=== PATIENT | male | born 1995 | race American Indian/Alaskan Native ===

== ENCOUNTER 2018-07-13 12:55 | Inpatient (IN) | payer BC, OTHER ==
[2018-07-13] MEDS ORDERED: DUONEB *Not for PRN Use IH ONE ×2 (13:15→13:18)
[2018-07-13] MEDS ORDERED: SOLU-Medrol IV ONE (13:20)
[2018-07-13] MEDS ORDERED: MAGNESIUM SULFATE 2GM/50ML 2 GM/50 ML BAG IV ONE (13:30)
[2018-07-13 13:58] LABS: Basophils % (Auto) 0.7 % (0.0-1.8); Eosinophils # (Auto) 0.2 K/mm3 (0.0-0.4); Eosinophils % (Auto) 4.1 % (0.0-4.3); Hematocrit 45.8 % (35.5-45.6); Lymphocytes % (Auto) 19.5 % (13.4-35.0); Mean Corpuscular HGB Conc 33 % (32-34); Mean Corpuscular Hemoglobin 29 pg (28-32); Mean Corpuscular Volume 87 fl (84-94); Monocytes # (Auto) 0.5 K/mm3 (0.0-0.8); Platelet Count 202 K/mm3 (140-440); Red Blood Count 5.27 M/mm3 (3.65-5.03); Red Cell Distribution Width 13.4 % (13.2-15.2)
--- NOTE | 2018-07-13 13:59 | XRay Report ---
AP CHEST: HISTORY: Hypertension AP view of the chest demonstrates a normal mediastinal and cardiac contour with clear lungs and normal bony and soft tissue structures. IMPRESSION: Unremarkable AP chest.
[2018-07-13 14:11] LABS: BUN/Creatinine Ratio 10; Blood Urea Nitrogen 10 mg/dL (9-20); Calcium 9.3 mg/dL (8.4-10.2); Hemolysis Index 20
[2018-07-13] MEDS ORDERED: PROVENTIL IH ONE ×3 (14:27→16:54)
[2018-07-13] MEDS ORDERED: ULTRAM PO ONE (15:45)
--- NOTE | 2018-07-13 16:07 | Emergency Department Report ---
ED Asthma HPI - General Chief Complaint: Adult Asthma Stated Complaint: ASTHMA ATK Time Seen by Provider: 07/13/18 13:19 Source: patient Mode of arrival: Ambulatory Limitations: No Limitations - History of Present Illness Initial Comments: 2-year-old male presents in respiratory distress secondary to asthma. He presents with his mother. Apparently he lives alone and has been fighting an asthma attack past 4 days. He is unable to speak in full sentences when he arrives. His mother answers for him. He has not been complaining of chest pain. No fever or chills. She has noted no productive sputum. States that the patient has been admitted in his youth for asthma. He's had no previous intubations. I cannot ascertain whether he was previously on BiPAP or not. He is not currently using steroids or a home neb machine. Complaint: "asthma attack" -: days(s) Asthma History: childhood onset Severity: moderate, severe Associated Symptoms: dry cough Treatments Prior to Arrival: inhaled bronchodilator - Related Data Current Asthma Therapy: inhaled bronchodilator Previous Rx's Medication Instructions Recorded Last Taken Type ALBUTEROL Inhaler (OR & NICU) 2 puff IH QID PRN #1 inhalation 08/30/14 Unknown Rx [ProAir HFA Inhaler] Acetamin/Codeine 120-12Mg/5 ml 5 ml PO TID PRN #30 ml 08/30/14 Unknown Rx [Tylenol/Codeine] Azithromycin [Zithromax Z-KAYE] 250 mg PO DAILY #6 tablet 08/30/14 Unknown Rx Allergies Allergy/AdvReac Type Severity Reaction Status Date / Time No Known Allergies Allergy Verified 08/24/14 01:45 ED Review of Systems ROS: Stated complaint: ASTHMA ATK Other details as noted in HPI Comment: Unobtainable due to pts medical conditions ED Past Medical Hx - Past Medical History Hx Asthma: Yes - Social History Smoking Status: Never Smoker Substance Use Type: None - Medications Home Medications: Home Medications Medication Instructions Recorded Confirmed Last Taken Type ALBUTEROL Inhaler (OR & NICU) 2 puff IH QID PRN #1 inhalation 08/30/14 Unknown Rx [ProAir HFA Inhaler] Acetamin/Codeine 120-12Mg/5 ml 5 ml PO TID PRN #30 ml 08/30/14 Unknown Rx [Tylenol/Codeine] Azithromycin [Zithromax Z-KAYE] 250 mg PO DAILY #6 tablet 08/30/14 Unknown Rx ED Physical Exam - General Limitations: Physical Limitation General appearance: anxious - Head Head exam: Present: atraumatic, normocephalic - Eye Eye exam: Present: normal appearance - ENT ENT exam: Present: mucous membranes moist - Neck Neck exam: Present: normal inspection. Absent: tenderness, meningismus - Respiratory Respiratory exam: Present: accessory muscle use, decreased breath sounds - Cardiovascular Cardiovascular Exam: Present: normal rhythm, tachycardia. Absent: systolic murmur, diastolic murmur, rubs, gallop - GI/Abdominal GI/Abdominal exam: Present: soft, normal bowel sounds. Absent: distended, tenderness, guarding, rebound, rigid - Extremities Exam Extremities exam: Present: normal inspection, normal capillary refill. Absent: tenderness, pedal edema, joint swelling, calf tenderness - Back Exam Back exam: Present: normal inspection - Neurological Exam Neurological exam: Present: alert, oriented X3, CN II-XII intact (as testable). Absent: motor sensory deficit ED Course Vital Signs 07/13/18 07/13/18 07/13/18 13:02 13:19 13:20 Temperature 99.5 F Pulse Rate 112 H 96 H Pulse Rate [ 94 H Posterior Bilateral Throughout] Respiratory 26 H 17 Rate Respiratory 26 H Rate [Posterior Bilateral Throughout] Blood Pressure 155/101 Blood Pressure [Left] O2 Sat by Pulse 96 Oximetry 07/13/18 07/13/18 07/13/18 13:21 13:24 13:30 Temperature Pulse Rate 90 95 H Pulse Rate [ Posterior Bilateral Throughout] Respiratory 26 H 24 13 Rate Respiratory Rate [Posterior Bilateral Throughout] Blood Pressure 123/80 Blood Pressure 123/80 [Left] O2 Sat by Pulse 96 98 99 Oximetry 07/13/18 07/13/18 07/13/18 13:50 14:00 14:30 Temperature Pulse Rate 94 H 102 H Pulse Rate [ 118 H 99 H Posterior Bilateral Throughout] Respiratory 11 L 18 Rate Respiratory 20 20 Rate [Posterior Bilateral Throughout] Blood Pressure 123/80 118/69 Blood Pressure [Left] O2 Sat by Pulse 96 92 Oximetry 07/13/18 15:05 Temperature Pulse Rate Pulse Rate [ 84 Posterior Bilateral Throughout] Respiratory Rate Respiratory 20 Rate [Posterior Bilateral Throughout] Blood Pressure Blood Pressure [Left] O2 Sat by Pulse Oximetry - Reevaluation(s) Reevaluation #1: Patient had improvement with serial nebs. He still has some residual wheezes on the right side. Pulse oximetry is now stable. He is currently complaining of cramping. His abdomen is benign. He is referred to Dr. Lowry for further care and evaluation. 07/13/18 16:06 ED Medical Decision Making - Lab Data Result diagrams: 07/13/18 13:33 07/13/18 13:33 Laboratory Results - last 24 hr 07/13/18 07/13/18 13:33 13:33 WBC 5.4 RBC 5.27 H Hgb 15.0 Hct 45.8 H MCV 87 MCH 29 MCHC 33 RDW 13.4 Plt Count 202 Lymph % (Auto) 19.5 [place] % (Auto) 10.0 H Eos % (Auto) 4.1 Baso % (Auto) 0.7 Lymph # 1.0 L [place] # 0.5 Eos # 0.2 Baso # 0.0 Seg Neutrophils % 65.7 Seg Neutrophils # 3.5 Sodium 137 Potassium 4.0 Chloride 98.9 Carbon Dioxide 24 Anion Gap 18 BUN 10 Creatinine 1.0 Estimated GFR > 60 BUN/Creatinine Ratio 10 Glucose 68 L Calcium 9.3 - EKG Data -: EKG Interpreted by Me EKG shows normal: sinus rhythm, axis, intervals, QRS complexes, ST-T waves Rate: normal - EKG Data Interpretation: no acute changes - Radiology Data Radiology results: report reviewed (no acute process) interpreted by me: Hyperinflation no acute infiltrate nor pneumothorax or pneumomediastinum Critical care attestation.: If time is entered above; I have spent that time in minutes in the direct care of this critically ill patient, excluding procedure time. ED Disposition Clinical Impression: Status asthmaticus Qualifiers: Asthma severity: moderate Asthma persistence: persistent Qualified Code(s): J45.42 - Moderate persistent asthma with status asthmaticus Disposition: OP ADMIT IP TO THIS HOSP Is pt being admited?: Yes Does the pt Need Aspirin: No Condition: Stable Referrals: PRIMARY CARE, [Primary Care Provider] - 3-5 Days Time of Disposition: 16:09
[2018-07-13] MEDS ORDERED: ATROVENT IH ONE ×2 (16:49→16:54)
[2018-07-13] MEDS ORDERED: PERCOCET 5/325 PO PRN (20:05)
[2018-07-13] MEDS ORDERED: TYLENOL PO PRN (20:05)
[2018-07-13] MEDS ORDERED: SODIUM CHLORIDE FLUSH SYRINGE 10 ML IV PRN (20:05)
[2018-07-13] MEDS ORDERED: ZOFRAN IV PRN (20:05)
--- NOTE | 2018-07-13 20:05 | History and Physical Report ---
History of Present Illness Date of examination: 07/13/18 Date of admission: 07/13/18 15:53 Chief complaint: Chief complaint: Increasing shortness of breath for 4 days and wheezing for 4 days History of present illness: History of Present Illness: 22-year-old black male with history of asthma comes in for acute shortness of breath for the last 4 days more so for this last 24 hours. Patient has been using nebulizer treatments regularly at home with no relief. Worsening of symptoms over the last 4 days. Cannot speak of. In terms. No fever or chills. Cough productive of mucoid sputum. Also has epigastric pain secondary to muscle spasms. No exacerbating or relieving factors. Asthma since childhood. Past Medical History Hx Asthma: Yes Social History Smoking Status: Never Smoker Substance Use Type: None Surgical history N/a Family History htn Medications Home Medications: Home Medications Medication Instructions Recorded Confirmed Last Taken Type ALBUTEROL Inhaler (OR & NICU) 2 puff IH QID PRN #1 inhalation 08/30/14 Unknown Rx [ProAir HFA Inhaler] Acetamin/Codeine 120-12Mg/5 ml 5 ml PO TID PRN #30 ml 08/30/14 Unknown Rx [Tylenol/Codeine] Azithromycin [Zithromax Z-KAYE] 250 mg PO DAILY #6 tablet 08/30/14 Unknown Rx Medications and Allergies Allergies Allergy/AdvReac Type Severity Reaction Status Date / Time No Known Allergies Allergy Verified 08/24/14 01:45 Home Medications Medication Instructions Recorded Confirmed Last Taken Type ALBUTEROL Inhaler (OR & NICU) 2 puff IH QID PRN #1 inhalation 08/30/14 07/13/18 Unknown Rx [ProAir HFA Inhaler] Albuterol Sulfate [Albuterol 0.63% 0.63 mg IH TID PRN 07/13/18 07/13/18 Unknown History NEBS] Montelukast [Singulair] 10 mg PO QPM 07/13/18 07/13/18 Unknown History Review of Systems All systems: negative Constitutional: no weight loss, no weight gain, no fever, no chills, no sweats, no night sweats Ears, nose, mouth and throat: no dysphagia, no hoarseness, no sore throat, no swelling in mouth, no swelling in throat Cardiovascular: no chest pain, no orthopnea, no palpitations, no rapid/ irregular heart beat, no edema, no syncope, no lightheadedness, no shortness of breath Respiratory: cough, congestion, wheezing Gastrointestinal: abdominal pain (secondary to muscle spasms) Genitourinary Male: no dysuria, no hematuria, no flank pain, no discharge, no urinary frequency, no urinary hesitancy, no nocturia, no incontinence, no erectile dysfunction, no genital pain Rectal: no pain Musculoskeletal: no neck stiffness, no neck pain, no shooting arm pain, no arm numbness/tingling, no low back pain, no shooting leg pain, no redness of joints Integumentary: no rash, no pruritis, no redness, no sores, no wounds, no jaundice, no boils, no blisters Neurological: no numbness, no tingling, no seizures, no syncope, no tremors Psychiatric: no anxiety, no memory loss, no change in sleep habits, no sleep disturbances, no insomnia, no hypersomnia, no change in appetite Endocrine: no cold intolerance, no heat intolerance, no polyphagia, no excessive thirst, no polydipsia, no polyuria Hematologic/Lymphatic: no easy bruising, no easy bleeding Allergic/Immunologic: wheezing, no urticaria, no allergic rhinitis Exam - Constitutional Vitals: Temp Pulse Resp BP Pulse Ox 98.9 F 127 H 20 135/83 94 07/13/18 18:52 07/13/18 18:52 07/13/18 18:52 07/13/18 18:52 07/13/18 18:52 General appearance: Present: severe distress, well-nourished - EENT Eyes: Present: PERRL ENT: hearing intact, clear oral mucosa - Neck Neck: Present: supple, normal ROM - Respiratory Respiratory effort: normal Respiratory: bilateral: CTA, rhonchi, wheezing - Cardiovascular Heart rate: 80 Rhythm: regular Heart Sounds: Present: S1 & S2. Absent: rub, click - Extremities Extremities: no ischemia, pulses intact, pulses symmetrical, No edema Peripheral Pulses: within normal limits - Abdominal General gastrointestinal: Present: soft, non-tender, non-distended, normal bowel sounds Male genitourinary: Present: normal - Rectal Rectal Exam: deferred - Integumentary Integumentary: Present: clear, warm, dry - Musculoskeletal Musculoskeletal: gait normal, strength equal bilaterally - Psychiatric Psychiatric: appropriate mood/affect, intact judgment & insight - Neurologic Neurologic: CNII-XII intact, moves all extremities - Allied Health Allied health notes reviewed: nursing, case management Results - Labs CBC & Chem 7: 07/13/18 13:33 07/13/18 13:33 Labs: Laboratory Last Values WBC 5.4 K/mm3 (4.5-11.0) 07/13/18 13:33 RBC 5.27 M/mm3 (3.65-5.03) H 07/13/18 13:33 Hgb 15.0 gm/dl (11.8-15.2) 07/13/18 13:33 Hct 45.8 % (35.5-45.6) H 07/13/18 13:33 MCV 87 fl (84-94) 07/13/18 13:33 MCH 29 pg (28-32) 07/13/18 13:33 MCHC 33 % (32-34) 07/13/18 13:33 RDW 13.4 % (13.2-15.2) 07/13/18 13:33 Plt Count 202 K/mm3 (140-440) 07/13/18 13:33 Lymph % (Auto) 19.5 % (13.4-35.0) 07/13/18 13:33 [place] % (Auto) 10.0 % (0.0-7.3) H 07/13/18 13:33 Eos % (Auto) 4.1 % (0.0-4.3) 07/13/18 13:33 Baso % (Auto) 0.7 % (0.0-1.8) 07/13/18 13:33 Lymph # 1.0 K/mm3 (1.2-5.4) L 07/13/18 13:33 [place] # 0.5 K/mm3 (0.0-0.8) 07/13/18 13:33 Eos # 0.2 K/mm3 (0.0-0.4) 07/13/18 13:33 Baso # 0.0 K/mm3 (0.0-0.1) 07/13/18 13:33 Seg Neutrophils % 65.7 % (40.0-70.0) 07/13/18 13:33 Seg Neutrophils # 3.5 K/mm3 (1.8-7.7) 07/13/18 13:33 Sodium 137 mmol/L (137-145) 07/13/18 13:33 Potassium 4.0 mmol/L (3.6-5.0) 07/13/18 13:33 Chloride 98.9 mmol/L (98-107) 07/13/18 13:33 Carbon Dioxide 24 mmol/L (22-30) 07/13/18 13:33 Anion Gap 18 mmol/L 07/13/18 13:33 BUN 10 mg/dL (9-20) 07/13/18 13:33 Creatinine 1.0 mg/dL (0.8-1.5) 07/13/18 13:33 Estimated GFR > 60 ml/min 07/13/18 13:33 BUN/Creatinine Ratio 10 % 07/13/18 13:33 Glucose 68 mg/dL (75-100) L 07/13/18 13:33 Calcium 9.3 mg/dL (8.4-10.2) 07/13/18 13:33 - Imaging and Cardiology Chest x-ray: report reviewed Assessment and Plan Advance Directives: Yes (Full code) VTE prophylaxis?: Chemical Plan of care discussed with patient/family: Yes - Patient Problems (1) Acute respiratory failure with hypoxia Current Visit: Yes Status: Acute Plan to address problem: IV Solu-Medrol IV Levaquin Xopenex nebulization every 8 hours and albuterol every 4 when necessary. BiPAP if necessary Intubation if necessary (2) Status asthmaticus Current Visit: Yes Status: Acute Qualifiers: Asthma severity: moderate Asthma persistence: persistent Qualified Code(s ): J45.42 - Moderate persistent asthma with status asthmaticus Plan to address problem: Patient initiated on Xopenex albuterol IV Solu-Medrol and IV Levaquin BiPAP if necessary Intubation if necessary (3) Muscle spasm Current Visit: Yes Status: Acute Plan to address problem: On Robaxin 750 twice a day (4) Pre-diabetes Current Visit: Yes Status: Acute Plan to address problem: A1c 6.1 Suspect prediabetes Metformin if necessary Needs to lose weight (5) DVT prophylaxis Current Visit: Yes Status: Acute Plan to address problem: On Lovenox 40 mg subcutaneous daily GI prophylaxis initiated
[2018-07-13] MEDS ORDERED: XOPENEX IH PRN (20:09)
[2018-07-13] MEDS ORDERED: PROVENTIL IH PRN (20:12)
[2018-07-13] MEDS: MORPHINE IV PRN (21:42)
[2018-07-13] MEDS: SOLU-Medrol IV SCH (21:48)
[2018-07-13] MEDS: PEPCID PO SCH (21:52)
[2018-07-13] MEDS: LEVAQUIN 750MG/150ML 750 MG/150 ML BAG IV SCH (21:53)
[2018-07-13] MEDS: ROBAXIN PO SCH (21:54)
[2018-07-14] MEDS ORDERED: SOLU-Medrol IV ONE (01:41)
[2018-07-14] MEDS: MORPHINE IV PRN ×2 (01:50→05:52)
[2018-07-14] MEDS: SODIUM CHLORIDE FLUSH SYRINGE 10 ML IV SCH ×2 (01:55→09:58)
[2018-07-14 05:49] LABS: Hematocrit 44.4 % (35.5-45.6); Hemoglobin 14.7 gm/dl (11.8-15.2); Mean Corpuscular HGB Conc 33 % (32-34); Mean Corpuscular Hemoglobin 29 pg (28-32); Mean Corpuscular Volume 87 fl (84-94); Platelet Count 221 K/mm3 (140-440); Red Blood Count 5.12 M/mm3 (3.65-5.03)
[2018-07-14] MEDS: SOLU-Medrol IV SCH ×2 (05:50→14:10)
[2018-07-14 06:14] LABS: Alanine Aminotransferase 19 units/L (7-56); Albumin 4.6 g/dL (3.9-5); BUN/Creatinine Ratio 14; Blood Urea Nitrogen 11 mg/dL (9-20); Calcium 9.8 mg/dL (8.4-10.2); Hemolysis Index 3
[2018-07-14 06:39] LABS: Band Neutrophils # (Manual) 0.1 K/mm3; Basophils % (Manual) 0 % (0.0-1.8); Eosinophils % (Manual) 0 % (0.0-4.3); Monocytes % (Manual) 0 % (0.0-7.3); Total Cells Counted 100
[2018-07-14 06:40] LABS: Platelet Estimate Consistent w Auto
[2018-07-14] MEDS: PULMICORT IH SCH ×2 (07:32→08:40)
[2018-07-14] MEDS: PEPCID PO SCH (09:58)
[2018-07-14] MEDS: LEVAQUIN 750MG/150ML 750 MG/150 ML BAG IV SCH (09:58)
--- NOTE | 2018-07-14 11:32 | Progress Note ---
Assessment and Plan Assessment and plan: 22-year-old black male with history of asthma comes in for acute shortness of breath x 4 days Patient had been using nebulizer treatments regularly at home with no relief. Worsening of symptoms over the last 4 days Past Medical History Hx Asthma since childhood Acute respiratory failure with hypoxia continue oxygen supplement Status asthmaticus steroids, nebs, RT consulted Muscle spasm On Robaxin 750 twice a day Pre-diabetes A1c 6.1 advised on lifestyle modification given obesity and steroid use with asthma DVT prophylaxis early ambulation History Interval history: Review of systems Constitutional: No fevers, no malaise, no joint pains CVS: No chest pain, no orthopnea, no dyspnea on exertion, no pedal edema GI: No abdominal pain, no diarrhea, no vomiting, no constipation Respiratory: continues to have wheezing and shortness of breath Hospitalist Physical - Physical exam Narrative exam: General.: Appears well, no distress, nontoxic HEENT: Moist mucous membranes, extraocular muscles intact, no lymphadenopathy Neck: supple Cardiac: S1-S2 heard Lungs; wheezing, decreased air entry Abdomen: soft , nontender, nondistended, bowel sounds positive Extremities: no edema clubbing or cyanosis Skin: no rash or lesions Neurologic: no gross focal deficits Psych: appropriate behavior, appropriate mood, corporative, judgment intact - Constitutional Vitals: Temp Pulse Resp BP Pulse Ox 98.2 F 73 18 135/62 99 07/14/18 05:26 07/14/18 07:35 07/14/18 08:10 07/14/18 05:26 07/14/18 07:37 General appearance: Present: severe distress, well-nourished Results - Labs CBC & Chem 7: 07/14/18 05:31 07/14/18 05:31 Labs: Laboratory Last Values WBC 6.9 K/mm3 (4.5-11.0) 07/14/18 05:31 RBC 5.12 M/mm3 (3.65-5.03) H 07/14/18 05:31 Hgb 14.7 gm/dl (11.8-15.2) 07/14/18 05:31 Hct 44.4 % (35.5-45.6) 07/14/18 05:31 MCV 87 fl (84-94) 07/14/18 05:31 MCH 29 pg (28-32) 07/14/18 05:31 MCHC 33 % (32-34) 07/14/18 05:31 RDW 14.0 % (13.2-15.2) 07/14/18 05:31 Plt Count 221 K/mm3 (140-440) 07/14/18 05:31 Lymph % (Auto) 19.5 % (13.4-35.0) 07/13/18 13:33 [place] % (Auto) 10.0 % (0.0-7.3) H 07/13/18 13:33 Eos % (Auto) 4.1 % (0.0-4.3) 07/13/18 13:33 Baso % (Auto) 0.7 % (0.0-1.8) 07/13/18 13:33 Lymph # 1.0 K/mm3 (1.2-5.4) L 07/13/18 13:33 [place] # 0.5 K/mm3 (0.0-0.8) 07/13/18 13:33 Eos # 0.2 K/mm3 (0.0-0.4) 07/13/18 13:33 Baso # 0.0 K/mm3 (0.0-0.1) 07/13/18 13:33 Add Manual Diff Complete 07/14/18 05:31 Total Counted 100 07/14/18 05:31 Seg Neutrophils % Compliance Project Manager 07/14/18 05:31 Seg Neuts % (Manual) 94.0 % (40.0-70.0) H 07/14/18 05:31 Band Neutrophils % 1.0 % 07/14/18 05:31 Lymphocytes % (Manual) 5.0 % (13.4-35.0) L 07/14/18 05:31 Reactive Lymphs % (Man) 0 % 07/14/18 05:31 Monocytes % (Manual) 0 % (0.0-7.3) 07/14/18 05:31 Eosinophils % (Manual) 0 % (0.0-4.3) 07/14/18 05:31 Basophils % (Manual) 0 % (0.0-1.8) 07/14/18 05:31 Metamyelocytes % 0 % 07/14/18 05:31 Myelocytes % 0 % 07/14/18 05:31 Promyelocytes % 0 % 07/14/18 05:31 Blast Cells % 0 % 07/14/18 05:31 Nucleated RBC % Not Reportable 07/14/18 05:31 Seg Neutrophils # 3.5 K/mm3 (1.8-7.7) 07/13/18 13:33 Seg Neutrophils # Man 6.5 K/mm3 (1.8-7.7) 07/14/18 05:31 Band Neutrophils # 0.1 K/mm3 07/14/18 05:31 Lymphocytes # (Manual) 0.3 K/mm3 (1.2-5.4) L 07/14/18 05:31 Abs React Lymphs (Man) 0.0 K/mm3 07/14/18 05:31 Monocytes # (Manual) 0.0 K/mm3 (0.0-0.8) 07/14/18 05:31 Eosinophils # (Manual) 0.0 K/mm3 (0.0-0.4) 07/14/18 05:31 Basophils # (Manual) 0.0 K/mm3 (0.0-0.1) 07/14/18 05:31 Metamyelocytes # 0.0 K/mm3 07/14/18 05:31 Myelocytes # 0.0 K/mm3 07/14/18 05:31 Promyelocytes # 0.0 K/mm3 07/14/18 05:31 Blast Cells # 0.0 K/mm3 07/14/18 05:31 WBC Morphology Not Reportable 07/14/18 05:31 Hypersegmented Neuts Not Reportable 07/14/18 05:31 Hyposegmented Neuts Not Reportable 07/14/18 05:31 Hypogranular Neuts Not Reportable 07/14/18 05:31 Smudge Cells Not Reportable 07/14/18 05:31 Toxic Granulation Not Reportable 07/14/18 05:31 Toxic Vacuolation Not Reportable 07/14/18 05:31 Dohle Bodies Not Reportable 07/14/18 05:31 Pelger-Huet Anomaly Not Reportable 07/14/18 05:31 Irma Rods Not Reportable 07/14/18 05:31 Platelet Estimate Consistent w auto 07/14/18 05:31 Clumped Platelets Not Reportable 07/14/18 05:31 Plt Clumps, EDTA Not Reportable 07/14/18 05:31 Large Platelets Not Reportable 07/14/18 05:31 Giant Platelets Not Reportable 07/14/18 05:31 Platelet Satelliting Not Reportable 07/14/18 05:31 Plt Morphology Comment Not Reportable 07/14/18 05:31 RBC Morphology Not Reportable 07/14/18 05:31 Dimorphic RBCs Not Reportable 07/14/18 05:31 Polychromasia Not Reportable 07/14/18 05:31 Hypochromasia Not Reportable 07/14/18 05:31 Poikilocytosis Not Reportable 07/14/18 05:31 Anisocytosis Not Reportable 07/14/18 05:31 Microcytosis Not Reportable 07/14/18 05:31 Macrocytosis Not Reportable 07/14/18 05:31 Spherocytes Not Reportable 07/14/18 05:31 Pappenheimer Bodies Not Reportable 07/14/18 05:31 Sickle Cells Not Reportable 07/14/18 05:31 Target Cells Not Reportable 07/14/18 05:31 Tear Drop Cells Not Reportable 07/14/18 05:31 Ovalocytes Not Reportable 07/14/18 05:31 Helmet Cells Not Reportable 07/14/18 05:31 Wilder-Haynes Bodies Not Reportable 07/14/18 05:31 [place] Rings Not Reportable 07/14/18 05:31 [place] Cells Not Reportable 07/14/18 05:31 Bite Cells Not Reportable 07/14/18 05:31 Crenated Cell Not Reportable 07/14/18 05:31 Elliptocytes Not Reportable 07/14/18 05:31 Acanthocytes (Spur) Not Reportable 07/14/18 05:31 Rouleaux Not Reportable 07/14/18 05:31 Hemoglobin C Crystals Not Reportable 07/14/18 05:31 Schistocytes Not Reportable 07/14/18 05:31 Malaria parasites Not Reportable 07/14/18 05:31 Jcarlos Bodies Not Reportable 07/14/18 05:31 Hem Pathologist Commnt No 07/14/18 05:31 Sodium 134 mmol/L (137-145) L 07/14/18 05:31 Potassium 4.9 mmol/L (3.6-5.0) D 07/14/18 05:31 Chloride 100.0 mmol/L (98-107) 07/14/18 05:31 Carbon Dioxide 24 mmol/L (22-30) 07/14/18 05:31 Anion Gap 15 mmol/L 07/14/18 05:31 BUN 11 mg/dL (9-20) 07/14/18 05:31 Creatinine 0.8 mg/dL (0.8-1.5) 07/14/18 05:31 Estimated GFR > 60 ml/min 07/14/18 05:31 BUN/Creatinine Ratio 14 % 07/14/18 05:31 Glucose 135 mg/dL (75-100) H 07/14/18 05:31 Hemoglobin A1c 6.1 % (4-6) H 07/13/18 13:33 Calcium 9.8 mg/dL (8.4-10.2) 07/14/18 05:31 Total Bilirubin 0.20 mg/dL (0.1-1.2) 07/14/18 05:31 AST 15 units/L (5-40) 07/14/18 05:31 ALT 19 units/L (7-56) 07/14/18 05:31 Alkaline Phosphatase 96 units/L (35-129) 07/14/18 05:31 Total Protein 7.7 g/dL (6.3-8.2) 07/14/18 05:31 Albumin 4.6 g/dL (3.9-5) 07/14/18 05:31 Albumin/Globulin Ratio 1.5 % 07/14/18 05:31
[2018-07-14] MEDS: ROBAXIN PO SCH (11:36)
[2018-07-14 13:44] VITALS: BP 131/77
[2018-07-15] MEDS ORDERED: LEVAQUIN PO SCH (10:00)
--- NOTE | 2018-07-15 15:35 | Discharge Summary ---
Providers - Providers Date of Admission: 07/13/18 15:53 Attending physician: SANGITA HUGGINS MD Primary care physician: YOLIE CHRISTINE MD Hospitalization Condition: Stable Hospital course: 22-year-old black male with history of asthma comes in for acute shortness of breath x 4 days Patient had been using nebulizer treatments regularly at home with no relief. he was admitted to the hospital, he was shared with oxygen steroids and nebulizer treatment. The patient improved. After discussing the patient's, Tan that he had been on Advair in the past, was no longer on it. He was put back on Advair for better control. He was discharged on steroid taper. He was weaned off oxygen prior to discharge Discharge diagnoses Acute respiratory failure with hypoxia Status asthmaticus Muscle spasm Pre-diabetes A1c 6.1 Disposition: DC-01 TO HOME OR SELFCARE Time spent for discharge: 33 minutes Core Measure Documentation - Palliative Care Palliative Care/ Comfort Measures: Not Applicable - Core Measures Any of the following diagnoses?: none Exam - Constitutional Vitals: Temp Pulse Resp BP Pulse Ox 97.9 F 93 H 16 131/77 96 07/14/18 11:32 07/14/18 11:32 07/14/18 11:32 07/14/18 11:32 07/14/18 11:32 General appearance: Present: no acute distress, well-nourished - EENT Eyes: Present: PERRL ENT: hearing intact, clear oral mucosa - Neck Neck: Present: supple, normal ROM - Respiratory Respiratory effort: normal Respiratory: bilateral: CTA - Cardiovascular Heart Sounds: Present: S1 & S2. Absent: rub, click - Extremities Extremities: pulses symmetrical, No edema Peripheral Pulses: within normal limits - Abdominal General gastrointestinal: Present: soft, non-tender, non-distended, normal bowel sounds Male genitourinary: Present: normal - Integumentary Integumentary: Present: clear, warm, dry - Musculoskeletal Musculoskeletal: gait normal, strength equal bilaterally - Psychiatric Psychiatric: appropriate mood/affect, intact judgment & insight - Neurologic Neurologic: CNII-XII intact, moves all extremities Plan Follow up with: PRIMARY CAREMD [Primary Care Provider] - 3-5 Days CARLOS MALLOY MD [Staff Physician] - 7 Days Prescriptions: ALBUTEROL Inhaler (OR & NICU) [ProAir HFA Inhaler] 2 puff IH QID PRN #1 inhalation PRN Reason: Shortness Of Breath Albuterol Sulfate [Albuterol 0.63% NEBS] 0.63 mg IH TID PRN #120 vial.neb PRN Reason: Wheezing Fluticasone/Salmeterol [Advair 250-50 Diskus] 1 each IH BID #1 blst.w.dev Methocarbamol [Robaxin TAB] 750 mg PO BID #10 tablet Montelukast [Singulair] 10 mg PO QPM #30 tablet Prednisone [predniSONE 5 mg (6-Day Pack, 21 Tabs)] 5 mg PO .TAPER #1 tab.ds.pk
== END 2018-07-14 16:30 | disposition home or self-care (01) | DRG 189 ==
LOC: ED 12:55 → 3A 15:53
PROVIDERS: ADMIT Internal Medicine; ATTEND Internal Medicine
DX: J96.01 Acute respiratory failure with hypoxia (principal); J45.42 Moderate persistent asthma with status asthmaticus; R73.03 Prediabetes; E66.9 Obesity, unspecified; M62.838 Other muscle spasm; Z60.2 Problems related to living alone; Z79.51 Long term (current) use of inhaled steroids; Z79.899 Other long term (current) drug therapy; Z82.49 Family history of ischemic heart disease and other diseases of the circulatory system; Z68.36 Body mass index [BMI] 36.0-36.9, adult
CPT/HCPCS: 36415; 71045; 80048; 80053; 83036; 85007; 85025; 93005; 93010; 94640; 94644; 94760; 96374; 96375; J1956; J2270; J2920; J2930; J3475

== ENCOUNTER 2019-10-20 06:51 | Emergency (ER) | payer SELFPAY ==
--- NOTE | 2019-10-20 07:28 | XRay Report ---
RIGHT KNEE 3 VIEWS INDICATION / CLINICAL INFORMATION: Fall with right knee pain. COMPARISON: None available. FINDINGS: BONES / JOINT(S): No acute fracture or subluxation. No significant arthritis. There is a moderate unruly nt effusion. SOFT TISSUES: No significant abnormality. ADDITIONAL FINDINGS: None. IMPRESSION: Moderate right knee joint effusion without acute osseous abnormality. Signer Name: Gaurav Fuller MD Signed: 10/20/2019 7:24 AM Workstation Name: [id number]
[2019-10-20] MEDS ORDERED: IBUPROFEN 600 MG TAB PO ONE (08:11)
[2019-10-20] MEDS ORDERED: oxyCODONE /ACETAMINOPHEN 5-325MG TAB PO ONE (08:51)
--- NOTE | 2019-10-20 08:52 | Emergency Department Report ---
ED Lower Extremity HPI - General Chief Complaint: Extremity Injury, Lower Stated Complaint: RT KNEE INJURY FALL Time Seen by Provider: 10/20/19 08:51 Source: patient Mode of arrival: Wheelchair Limitations: Physical Limitation - History of Present Illness Initial Comments: 24 YO AA MALE COMES TO ER P FALLING OFF CURB TODAY AND INJURING KNEE. DENIES OTH ER INJURY. R KNEE SWELLING AND DIFFICULTY BEARING WEIGHT ON ARRIVAL TO ER. NO OTHER INJURY - Related Data Previous Rx's Medication Instructions Recorded Last Taken Type Fluticasone/Salmeterol [Advair 1 each IH BID #1 blst.w.dev 07/14/18 Unknown Rx 250-50 Diskus] Montelukast [Singulair] 10 mg PO QPM #30 tablet 07/14/18 Unknown Rx Albuterol INH(or & Nicu Only) 2 puff IH QID PRN #1 inhalation 08/27/18 Unknown Rx [ProAir HFA Inhaler] HYDROcodone/APAP 5-325 [Allison 1 each PO Q6HR PRN #15 tablet 08/27/18 Unknown Rx 5-325 mg TAB] predniSONE [Deltasone] 20 mg PO QDAY #5 tab 08/27/18 Unknown Rx Doxycycline Hyclate [Doxycycline 100 mg PO Q12HR #14 tab 08/29/18 Unknown Rx Hyclate TAB] Famotidine [Pepcid] 20 mg PO Q12H #30 tablet 08/29/18 Unknown Rx Prednisone [predniSONE 5 mg (6-Day 5 mg PO .TAPER #1 tab.ds.pk 08/29/18 Unknown Rx Pack, 21 Tabs)] diphenhydrAMINE [Benadryl CAP] 25 mg PO Q12HR PRN #14 capsule 08/29/18 Unknown Rx Ibuprofen [Motrin] 800 mg PO Q8HR PRN #30 tablet 10/20/19 Unknown Rx traMADoL [Ultram] 50 mg PO Q6HR PRN #10 tablet 10/20/19 Unknown Rx Allergies Allergy/AdvReac Type Severity Reaction Status Date / Time sulfamethoxazole Allergy Intermediate Angioedema Verified 08/29/18 11:50 [From Bactrim] trimethoprim [From Bactrim] Allergy Intermediate Angioedema Verified 08/29/18 11:50 clindamycin Allergy Hives Verified 08/28/18 08:51 shellfish derived Allergy Swelling Verified 08/27/18 00:02 ED Review of Systems ROS: Stated complaint: RT KNEE INJURY FALL Other details as noted in HPI Comment: All other systems reviewed and negative ED Past Medical Hx - Past Medical History Previous Medical History?: Yes Hx Diabetes: No Hx Asthma: Yes - Surgical History Past Surgical History?: No - Family History Family history: no significant - Social History Smoking Status: Never Smoker Substance Use Type: None - Medications Home Medications: Home Medications Medication Instructions Recorded Confirmed Last Taken Type Fluticasone/Salmeterol [Advair 1 each IH BID #1 blst.w.dev 07/14/18 08/28/18 Unknown Rx 250-50 Diskus] Montelukast [Singulair] 10 mg PO QPM #30 tablet 07/14/18 08/28/18 Unknown Rx Albuterol INH(or & Nicu Only) 2 puff IH QID PRN #1 inhalation 08/27/18 08/28/18 Unknown Rx [ProAir HFA Inhaler] HYDROcodone/APAP 5-325 [Allison 1 each PO Q6HR PRN #15 tablet 08/27/18 08/28/18 Unknown Rx 5-325 mg TAB] predniSONE [Deltasone] 20 mg PO QDAY #5 tab 08/27/18 08/28/18 Unknown Rx Doxycycline Hyclate [Doxycycline 100 mg PO Q12HR #14 tab 08/29/18 Unknown Rx Hyclate TAB] Famotidine [Pepcid] 20 mg PO Q12H #30 tablet 08/29/18 Unknown Rx Prednisone [predniSONE 5 mg (6-Day 5 mg PO .TAPER #1 tab.ds.pk 08/29/18 Unknown Rx Pack, 21 Tabs)] diphenhydrAMINE [Benadryl CAP] 25 mg PO Q12HR PRN #14 capsule 08/29/18 Unknown Rx Ibuprofen [Motrin] 800 mg PO Q8HR PRN #30 tablet 10/20/19 Unknown Rx traMADoL [Ultram] 50 mg PO Q6HR PRN #10 tablet 10/20/19 Unknown Rx ED Physical Exam - General Limitations: Physical Limitation General appearance: alert, in no apparent distress - Head Head exam: Present: atraumatic, normocephalic - Eye Eye exam: Present: normal appearance - ENT ENT exam: Present: mucous membranes moist - Neck Neck exam: Present: normal inspection - Respiratory Respiratory exam: Present: normal lung sounds bilaterally. Absent: respiratory distress - Cardiovascular Cardiovascular Exam: Present: regular rate, normal rhythm. Absent: systolic murmur, diastolic murmur, rubs, gallop - GI/Abdominal GI/Abdominal exam: Present: soft, normal bowel sounds - Rectal Rectal exam: Present: deferred - Extremities Exam Extremities exam: Present: normal inspection - Expanded Lower Extremity Exam Right Upper Leg exam: Present: normal inspection Knee exam: Present: tenderness, swelling, erythema, effusion Lower Leg exam: Present: normal inspection - Back Exam Back exam: Present: normal inspection - Neurological Exam Neurological exam: Present: alert, oriented X3 - Psychiatric Psychiatric exam: Present: normal affect, normal mood - Skin Skin exam: Present: warm, dry, intact, normal color. Absent: rash ED Course Vital Signs 10/20/19 09:37 Respiratory 16 Rate ED Lower Extremity MDM - Radiology Data Radiology results: report reviewed, image reviewed - Medical Decision Making VS NORMAL DOCUMENTED MANUALLY PER RN EFFUSION NOTED ON EXAM XRAY NOTED MEDICATED FOR PAIN KNEE IMMOBILIZER AND CRUTCHES NON WEIGHT BEARING DISTAL DP/PT PLUS 2. FULL ROM HIP AND ANKLE. NO ANKLE SWELLING- MEDIAL NOR LATERAL. PT DC HOME WITH MOTHER AND FOLLOW UP WITH DR SAHU Vital Signs 10/20/19 09:37 Respiratory 16 Rate - Differential Diagnosis RO FX Critical care attestation.: If time is entered above; I have spent that time in minutes in the direct care of this critically ill patient, excluding procedure time. ED Disposition Clinical Impression: Fall, Knee effusion Disposition: DC-01 TO HOME OR SELFCARE Is pt being admited?: No Does the pt Need Aspirin: No Condition: Stable Instructions: Knee Effusion (ED) Additional Instructions: ice rest elevate immobilizer crutches no weight on leg med as ordered for pain follow up Dr Sahu [place] referral below Prescriptions: Ibuprofen [Motrin] 800 mg PO Q8HR PRN #30 tablet PRN Reason: Pain, Moderate (4-6) traMADoL [Ultram] 50 mg PO Q6HR PRN #10 tablet PRN Reason: Pain Referrals: BHAVIN SAHU MD [Staff Physician] - 3-5 Days Forms: Accompanied Note, Work/School Release Form(ED) Time of Disposition: 09:03
== END 2019-10-20 10:02 | disposition home or self-care (01) ==
LOC: ED 06:51
DX: M25.461 Effusion, right knee (principal)
CPT/HCPCS: 99284